=== PATIENT | female | born 1975 | race Hispanic/Latino ===

== ENCOUNTER 2017-09-21 08:00 | Day surgery (SDC) | payer OTHER ==
[2017-09-19 10:47] LABS: BASOPHILS % (AUTO) 0.8 % (0.0-5.0); EOSINOPHILS % (AUTO) 0.7 % (0.0-8.0); HEMATOCRIT 42.3 % (36-48); MEAN CORPUSCULAR HEMOGLOBIN 32.1 pg (27.0-33.0); MEAN CORPUSCULAR HGB CONC 34.4 g/dL (32.0-36.0); MEAN CORPUSCULAR VOLUME 93.5 fL (79-99); MONOCYTES % (AUTO) 7.7 % (3.0-13.0); NEUTROPHILS % (AUTO) 53.8 % (40.0-77.0); NUCLEATED RED BLOOD CELLS 0.1 % (0.0-0.19); PLATELET COUNT (AUTO) 309 K/uL (130-400); RED BLOOD CELL COUNT(AUTO) 4.53 MIL/uL (4.00-5.50); RED CELL DISTRIBUTION WIDTH 12.3 % (11.0-15.5); WHITE BLOOD COUNT (AUTO) 5.6 K/uL (4.8-10.8)
[2017-09-19 10:57] LABS: CREATININE 0.7 mg/dL (0.5-1.5); POTASSIUM 4.2 mmol/L (3.5-5.1)
[2017-09-19 11:37] VITALS: BP 110/70
[~2017-09-21] VITALS: Ht 157.5 cm; Wt 64.7 kg
[2017-09-21] VITALS (9 sets, daily range): BP systolic 97–128; BP diastolic 61–79
[~2017-09-21 08:00] MED LIST: MAGN400T40 PO; METO-408 PO; MULT-1203 PO
[2017-09-21] MEDS ORDERED: SODIUM CHLORIDE 0.9% 1000ML 1,000 ML IV ONE (09:15)
[2017-09-21] MEDS ORDERED: LIDOCAINE HCL 2% 20ML ONE (11:10)
[2017-09-21] MEDS ORDERED: MIDAZOLAM HCL 1 MG/ML 2ML VIAL ONE (11:17)
[2017-09-21] MEDS ORDERED: MEPERIDINE-PF 25 MG/ML SYG ONE (11:17)
[2017-09-21] MEDS ORDERED: ISOPROTERENOL HCL 0.2 MG/ML AMP/VIAL/BAG ONE (11:49)
[2017-09-21] MEDS ORDERED: ADENOSINE 3 MG/ML 2ML VIAL IV ONE (12:17)
== END 2017-09-21 16:00 | disposition home or self-care (01) ==
LOC: DAH 08:00
PROVIDERS: ATTEND Internal Medicine Cardiovascular Disease
DX: I47.1 Supraventricular tachycardia (principal)
CPT/HCPCS: 36415; 80048; 84703; 85025; 93620; 93621; 93623; 99152; A4606; A4649; C1730 ×4; C1894 ×5; J0153; J1644; J2175; J2250; J3490 ×2; J7030; 99153; 99156; 99157